=== PATIENT | female | born 1995 | race Caucasian/White ===

== ENCOUNTER 2018-09-07 13:49 | Inpatient (IN) | payer OTHER ==
[~2018-09-07] VITALS: Ht 157.5 cm; Wt 88.4 kg
[2018-09-07 14:06] VITALS: Ht 157.5 cm; Wt 88.4 kg
[2018-09-07] MEDS ORDERED: LACTATED RINGER'S 1,000 ML IV SCH ×2 (14:08→21:13)
[2018-09-07] MEDS ORDERED: METHYLERGONOVINE 0.2 MG INJ IM PRN ×2 (14:30→21:30)
[2018-09-07] MEDS ORDERED: GENTAMICIN 120 MG/NS (PMX) 100 ML IVPB ONE (14:30)
[2018-09-07] MEDS ORDERED: OXYTOCIN 30 UNITS/LR 500 ML IV SCH (14:30)
[2018-09-07] MEDS ORDERED: OXYTOCIN 30 UNITS/LR 500 ML IV PRN ×2 (14:30→21:30)
[2018-09-07] MEDS ORDERED: CARBOPROST 250 MCG INJ IM PRN ×2 (14:30→21:30)
[2018-09-07] MEDS ORDERED: MISOPROSTOL 200 MCG TAB PR PRN ×2 (14:30→21:30)
[2018-09-07] MEDS ORDERED: CLINDAMYCIN 900 MG/D5W (PMX) 50 ML IVPB SCH (14:30)
[2018-09-07 14:48] VITALS: BP 109/69; PULSE 60; RESP 20
[2018-09-07] MEDS ORDERED: CITRIC ACID/NA CITRATE 30 ML CUP PO STA (15:06)
--- NOTE | 2018-09-07 15:27 | PREAC ---
Date/Time of Note Date/Time of Note DATE: 09/07/18 TIME: 15:26 Anesthesia Eval and Record Evaluation Time Pre-Procedure Interview DATE: 09/07/18 TIME: 15:26 Age 22 Sex female NPO: 8 hrs Preoperative diagnosis repeat c section Planned procedure c section Past Medical History Past Medical History: Includes : Para: (1), Gestational age: (40) Surgery & Anesthesia Issues No known issue Meds Anticoagulation: No Beta Sharlene within 24 hr: No Reason Beta Sharlene not given: Pt. not on B-Sharlene Current Medications Lactated Ringer's 1,000 ml @ 125 mls/hr Q8H IV Last administered on 09/07/18at 14:47; Admin Dose 125 MLS/HR; Start 09/07/18 at 14:08 Clindamycin HCl/ Dextrose 50 ml @ 50 mls/hr ONCE IVPB ; Start 09/07/18 at 14:30 Oxytocin/Lactated Ringer's 500 ml @ 125 mls/hr POST IV ; Start 09/07/18 at 14:30 Oxytocin/Lactated Ringer's 500 ml @ 0 mls/hr ONCE PRN IV .VAGINAL BLEEDING; Start 09/07/18 at 14:30 Methylergonovine Maleate (Methergine) 0.2 mg ONCE PRN IM .VAGINAL BLEEDING; Start 09/07/18 at 14:30 Carboprost Tromethamine (Hemabate) 250 mcg ONCE PRN IM .VAGINAL BLEEDING; Start 09/07/18 at 14:30 Misoprostol (Cytotec) 1,000 mcg ONCE PRN OK .VAGINAL BLEEDING; Start 09/07/18 at 14:30 Meds reviewed: Yes Allergies Coded Allergies: penicillin G (Verified Allergy, Unknown, rash, 09/07/18) Allergies Reviewed: Yes Labs/Studies Labs Reviewed: Reviewed by anesthesiologist Result Diagram: 09/07/18 1428 Laboratory Tests 09/07/18 14:28 Blood Bank Test 09/07/18 14:28 Antibody Screen NEGATIVE Blood Type O POSITIVE Rh Immune Globulin Candidate NO test: Positive Studies: ECG (n/a), CXR (n/a) Pre-procedure Exam Last vitals Vital Signs Date Temp Pulse Resp B/P (MAP) Pulse Ox O2 O2 Flow FiO2 Time Delivery Rate 09/07/18 98.3 60 20 109/69 14:48 (82) Airway: Adequate mouth opening Mallampati: Mallampati I Teeth: Normal Lung: Normal Heart: Normal ASA Physical Status ASA physical status: 2 Emergency: None Planned Anesthetic Neuraxial: Spinal Planned Pain Management Sub-arachniod narcotics Pre-operative Attestations Prior to commencing anesthesia and surgery, the patient was re-evaluated, there was verification of: *The patient's identity *The results of appropriate recent lab work and preoperative vital signs *The above evaluation not changing prior to induction *Anesthetic plan, risk benefits, alternative and complications discussed with patient/family; questions answered; patient/family understands, accepts and wishes to proceed. LIAM GREEN MD September 07, 2018 15:27
[2018-09-07] MEDS ORDERED: KETOROLAC 30 MG INJ ONE (15:47)
[2018-09-07] MEDS ORDERED: METOCLOPRAMIDE 10 MG INJ ONE (15:47)
[2018-09-07] MEDS ORDERED: morphine SULFATE/PF (10 MG/10 ML) INJ ONE (15:47)
[2018-09-07] MEDS ORDERED: ONDANSETRON 4 MG INJ ONE (15:47)
--- NOTE | 2018-09-07 17:07 | HP ---
Date/Time of Note Date/Time of Note DATE: 09/07/18 TIME: 17:05 OB - History Hx of Present Free Text/Dictation 22-year-old female 4 para 1 AB 2 at 40 weeks gestation admitted for repeat Last Menstrual Period: Dec 07, 2017 Estimated Due Date: September 07, 2018 : 4 Para: 1 Spontaneous : 2 Care: Good Care Ultrasounds: Normal mid trimester US Medical Complications: None Past Family/Social History * Past Medical, Surgical, Family and Obstetric Histories reviewed from chart. Blood Type: O+ Rubella: immune RPR/VDRL: Negative GBS Status: Negative HBsAG: Negative OB Admission Exam Vital Signs Vital Signs Vital Signs Date Temp Pulse Resp B/P (MAP) Pulse Ox O2 O2 Flow FiO2 Time Delivery Rate 09/07/18 98.3 60 20 109/69 14:48 (82) Physical Exam HEENT: WNL Heart: Rhythm Normal Lungs: Clear, Equal Abdomen: WNL Extremities: Normal Reflexes: Normal Cervical Dilatation: None Effacement: 0% Station: -3 Membranes: Intact Heart Rate: 140's Accelerations: Accelerations Present Decelerations: No Decelerations Varibility: Marked Contractions on Admission: None Last 72 hours Lab Results CBC & BMP 09/07/18 14:28 OB Assessment/Plan Reason for admission: section Other Assessment: Term gestation Previous x1 Other plan: Repeat section CUAUHTEMOC VERMA MD September 07, 2018 17:07
[2018-09-07] MEDS ORDERED: KETOROLAC 30 MG INJ IV STA (17:11)
[2018-09-07] MEDS ORDERED: ACETAMINOPHEN 500 MG TAB PO STA (17:11)
--- NOTE | 2018-09-07 17:11 | OPR ---
Operative Report Planned Procedure Procedure date September 07, 2018 Procedure(s) Repeat delivery Performed by see signature line Solution Lead: ZACH LOVE MD Anesthesiologist: LIAM GREEN MD Pre-procedure diagnosis Term gestation Previous [id number] Anesthesia Type: Nicnn0q spinal Post-Procedure Post-procedure diagnosis Status post repeat Findings Live Baby in CARL position Slightly meconium stained amniotic fluid Normal-appearing right and left fallopian tubes and ovaries Estimated Blood Loss: 500 - 600 mls Specimen(s) none Grafts/Implant(s) none Complication(s) none Pt Condition post procedure: stable Disposition: PACU Procedure Description Under satisfactory anaesthesia a Pfannenstiel incision was made two fingerbreadth above and parallel to the symphysis of pubis around the previous scar and previous scar was removed Incision was extended laterally to the border of the Recti muscles on either sides. Incision was carried down with sharp and blunt dissection until fascia was reached. Anterior Recti muscle fascia was incised in mid portion and incision extended laterally to the border of skin incision. Fascia was mobilized from muscle superiorly and Recti muscles were from midline using sharp and blunt dissection. Peritoneum was visualized; Avoiding bowel and bladder it was incised . Incision was extended superiorly and inferiorly. Bladder blade was placed. Posterior peritoneum covering the lower segment of the uterus and lower segment of the uterus were incised.Low transverse uterine incision was made on lower segment of the uterus. Incision extended laterally to the border of Round Lig. on either sides and baby was delivered from OT. position . Amniotic fluid appeared clear. Cord blood was obtained and cord had 3 vessels . Placenta was delivered spontaneously and appeared intact and complete. Intrauterine cavity was rubbed with a laparotomy sponge. Uterine incision was closed in 2 layers using running stitches of No1 Monocryl. Hemostasis appeared secure. Ovaries and Fallopian tubes were within normal limits. Announcing needle, lap sponge and instrument count to be correct abdomen was closed in layers as follows: Peritoneum and Recti muscles with running stitches of 2-0 Monocryl . Fascia with running stitch of No 1 PDS. Subcutaneous tissue with running stitches of 2- 0 Monocryl and skin was closed using fabrizio. Patient tolerated the procedure well and was transferred to [facility] in good condition. CUAUHTEMOC VERMA MD September 07, 2018 17:11
[2018-09-07] MEDS ORDERED: DIPHENHYDRAMINE 50 MG INJ IV PRN ×2 (17:30)
[2018-09-07] MEDS ORDERED: KETOROLAC 30 MG INJ IV PRN (17:30)
[2018-09-07] MEDS ORDERED: morphine 2 MG INJ IV PRN ×6 (17:30)
[2018-09-07] MEDS ORDERED: ONDANSETRON 4 MG INJ IV PRN ×2 (17:30)
[2018-09-07] MEDS ORDERED: NALOXONE (0.4 MG/ML) INJ IV PRN (17:30)
[2018-09-07] MEDS ORDERED: MEPERIDINE 25 MG INJ IV PRN (17:30)
[2018-09-07] MEDS ORDERED: NA PHOSPHATE/BIPHOS 133 ML ENEMA PR PRN (21:30)
[2018-09-07] MEDS ORDERED: LANOLIN HPA 1 PKT TOP PRN (21:30)
[2018-09-07] MEDS ORDERED: OXYCODONE/ACETAMINOPHEN (5/325) TAB PO PRN (21:30)
[2018-09-07] MEDS ORDERED: HYDROCODONE/APAP (5/325) TAB PO PRN (21:30)
[2018-09-07] MEDS: CLINDAMYCIN 900 MG/D5W (PMX) 50 ML IVPB SCH (21:30)
[2018-09-07] MEDS: GENTAMICIN 80 MG/NS (PMX) 50 ML IVPB SCH (22:41)
[2018-09-07 23:58] VITALS: BP 100/63; PULSE 65; RESP 18
[2018-09-08 03:52] VITALS: BP 101/59; PULSE 65; RESP 20
[2018-09-08] MEDS: CLINDAMYCIN 900 MG/D5W (PMX) 50 ML IVPB SCH ×2 (05:22→13:07)
[2018-09-08] MEDS: KETOROLAC 30 MG INJ IV PRN ×2 (05:44→13:19)
[2018-09-08] MEDS: GENTAMICIN 80 MG/NS (PMX) 50 ML IVPB SCH ×2 (06:32→13:23)
[2018-09-08 08:59] VITALS: BP 99/58; PULSE 62; RESP 18
[2018-09-08] MEDS: SENNA/DOCUSATE NA (8.6MG/50MG) TAB PO SCH ×2 (09:12→21:30)
[2018-09-08] MEDS ORDERED: BISACODYL 10 MG SUPP PR ONE (09:30)
[2018-09-08 12:00] VITALS: BP 110/63; PULSE 6; RESP 18
--- NOTE | 2018-09-08 12:05 | PN ---
Date/Time of Note Date/Time of Note DATE: 09/08/18 TIME: 12:04 Assessment/Plan VTE Prophylaxis VTE Prophylaxis Intervention: ambulation Lines/Catheters IV Catheter Type (from Nrsg): Peripheral IV Assessment/Plan Assessment/Plan Status post postop day #1 Advance diet and ambulate Continue to monitor vital signs Subjective 24 Hr Interval Summary No bowel movement but passing flatus Constitutional: no complaints, improved, ambulates, BM, flatus, urine output Pain Control: well controlled Exam/Review of Systems Vital Signs Vitals Vital Signs Date Temp Pulse Resp B/P (MAP) Pulse Ox O2 O2 Flow FiO2 Time Delivery Rate 09/08/18 98.1 62 18 99/58 (72) 99 Room Air 08:59 Intake and Output 09/07/18 09/07/18 09/08/18 1515:00 23:00 07:00 IntakeIntake Total 1000 ml 2450 ml 50 ml OutputOutput Total 200 ml 1083 ml 1000 ml BalanceBalance 800 ml 1367 ml -950 ml Exam Free Text/Dictation Abdomen is soft and not distended with present bowel sounds Slightly tender around incision Incision is covered Constitutional: alert, oriented, well developed Psych: no complaints, nl mood/affect Head: normocephalic, atraumatic Eyes: nl conjunctiva, EOMI, nl lids, nl sclera ENMT: nl external ears & nose, nl lips & teeth, nl nasal mucosa & septum, mucosa pink and moist Neck: supple, non-tender Respiratory: clear to auscultation, normal air movement Cardiovascular: regular rate and rhythm, nl pulses Gastrointestinal: soft, nl liver, spleen, non-tender Musculoskeletal: nl extremities to inspection, nl gait and stance Extremities: normal pulses Neurological: DOOR CORE ASSEMBLER II-XII intact, nl mental status, nl speech, nl strength Skin: nl turgor, rash or lesions Lymph: nl lymph nodes Results Result Diagram: 09/08/18 0717 CUAUHTEMOC VERMA MD September 08, 2018 12:05
[2018-09-08 15:48] VITALS: BP 134/79; PULSE 75; RESP 20
[2018-09-08 19:40] VITALS: BP 120/82; PULSE 90; RESP 19
[2018-09-08] MEDS: IBUPROFEN 800 MG TAB PO SCH (21:30)
[2018-09-09 04:00] VITALS: BP 120/80; PULSE 63; RESP 19
[2018-09-09] MEDS: CLINDAMYCIN 300 MG CAP PO SCH ×3 (06:24→17:34)
[2018-09-09] MEDS: IBUPROFEN 800 MG TAB PO SCH ×3 (06:24→21:44)
[2018-09-09 08:15] VITALS: BP 114/76; PULSE 66; RESP 18
[2018-09-09] MEDS: SENNA/DOCUSATE NA (8.6MG/50MG) TAB PO SCH ×2 (09:17→21:44)
[2018-09-09 15:35] VITALS: BP 120/79; PULSE 70; RESP 16
[2018-09-09 20:40] VITALS: BP 118/72; PULSE 74; RESP 17
[2018-09-10] MEDS: CLINDAMYCIN 300 MG CAP PO SCH ×4 (00:02→18:02)
[2018-09-10 04:00] VITALS: BP 111/68; PULSE 78; RESP 18
--- NOTE | 2018-09-10 06:40 | PAC ---
Date/Time of Note Date/Time of Note DATE: 09/09/18 TIME: 06:39 Post-Anesthesia Notes Post-Anesthesia Note Last documented vital signs Vital Signs Date Temp Pulse Resp B/P (MAP) Pulse Ox O2 O2 Flow FiO2 Time Delivery Rate 09/10/18 97.9 78 18 111/68 99 Room Air 04:00 (82) 09/08/18 99 08:59 Activity: WNL Respiratory function: WNL Cardiovascular function: WNL Mental status: Baseline Pain reasonably controlled: Yes Hydration appropriate: Yes Nausea/Vomiting absent: No LIAM GREEN MD September 10, 2018 06:40
[2018-09-10] MEDS: IBUPROFEN 800 MG TAB PO SCH ×2 (06:57→13:22)
[2018-09-10 08:00] VITALS: BP 119/74; PULSE 66; RESP 18
--- NOTE | 2018-09-10 08:43 | OPPN ---
Date/Time of Note Date/Time of Note DATE: 09/08/18 TIME: 08:41 Anesthesia Follow up Anesthesia Follow up Last documented vital signs Vital Signs Date Temp Pulse Resp B/P (MAP) Pulse Ox O2 O2 Flow FiO2 Time Delivery Rate 09/10/18 97.9 78 18 111/68 Room Air 04:00 (82) 09/08/18 99 08:59 Respiratory function: WNL Cardiovascular function: WNL Comments A 22 year s/pspinal duramorph for post op pain, POD#1 no issue, no headache, pain, N/V, itching, neural deficit. care per surgery LIAM GREEN MD September 10, 2018 08:43
[2018-09-10] MEDS ORDERED: DIPHTH/TET/ACEL PERTUSS (ADULT) 0.5 ML VIAL IM* ONE (09:00)
[2018-09-10] MEDS: SENNA/DOCUSATE NA (8.6MG/50MG) TAB PO SCH (09:36)
[2018-09-10 16:00] VITALS: BP 136/83; PULSE 78; RESP 20
--- NOTE | 2018-09-10 16:23 | PN ---
Date/Time of Note Date/Time of Note DATE: 09/09/18 Late entry Assessment/Plan VTE Prophylaxis VTE Prophylaxis Intervention: ambulation Lines/Catheters IV Catheter Type (from Nrsg): Saline Lock Assessment/Plan Assessment/Plan Status post postop day #2 We will continue to monitor vital signs and possibly discharge Subjective 24 Hr Interval Summary Had bowel movements Constitutional: no complaints, improved, ambulates, BM, flatus, urine output Pain Control: well controlled Exam/Review of Systems Vital Signs Vitals Vital Signs Date Temp Pulse Resp B/P (MAP) Pulse Ox O2 O2 Flow FiO2 Time Delivery Rate 09/10/18 98.3 66 18 119/74 Room Air 08:00 (89) 09/08/18 99 08:59 Exam Free Text/Dictation Abdomen is soft and not distended bowel sounds are present Incision is healing without induration and or erythema Constitutional: alert, oriented, well developed Psych: no complaints, nl mood/affect Head: normocephalic, atraumatic Eyes: nl conjunctiva, EOMI, nl lids, nl sclera ENMT: nl external ears & nose, nl lips & teeth, nl nasal mucosa & septum, mucosa pink and moist Neck: supple, non-tender Respiratory: clear to auscultation, normal air movement Cardiovascular: regular rate and rhythm, nl pulses Gastrointestinal: soft, nl liver, spleen, non-tender Musculoskeletal: nl extremities to inspection, nl gait and stance Extremities: normal pulses Neurological: PATIENT CARE SPECIALIST II-XII intact, nl mental status, nl speech, nl strength Skin: nl turgor, rash or lesions Lymph: nl lymph nodes Results Result Diagram: 09/09/18 0756 CUAUHTEMOC VERMA MD September 10, 2018 16:23
--- NOTE | 2018-09-10 16:24 | DS ---
Date/Time of Note Date/Time of Note DATE: 09/10/18 TIME: 16:23 Obstetrical Discharge Record Final Diagnosis Final Diagnosis: Term delivered Other Final Diagnosis Status post Section Section: Repeat Condition on Discharge Physical Assessment Last Vitals: See nurse's notes Voiding: Yes Bowel Movement: Yes Breast: Soft, non-tender, Filling Fundus: Firm Abdomen and Incision: Abdomen is soft with present bowel sounds Incision is healing without induration or erythema Calf Tenderness: No Patient Condition: Good CUAUHTEMOC VERMA MD September 10, 2018 16:24
[2018-09-10] MEDS ORDERED: ACETAMINOPHEN 325 MG TAB PO PRN (16:30)
--- NOTE | 2018-09-10 16:32 | DS ---
Date/Time of Note Date/Time of Note DATE: 09/10/18 TIME: 16:25 Discharge Summary Admission/Discharge Info Admit Date/Time September 07, 2018 at 13:49 Discharge Date/Time September 10, 2018 Discharge Diagnosis Status post Patient Condition: Good Procedures Repeat delivery Hx of Present Illness 22-year-old female underwent repeat Hospital Course Uncomplicated Follow-up Plan 2 days for staple removal Primary Care Provider [facility] Time spent on discharge: > 30 minutes CUAUHTEMOC VERMA MD September 10, 2018 16:32
--- NOTE | 2018-09-10 16:33 | PD.PPDC ---
COLD ROLLING COORDINATOR Discharge Instruction Provider Information Physician Information 22-year-old female had repeat Diagnosis [id number] Final Diagnosis: Iehqq0z Status post Condition [id number] Patient Condition: Vdshn4w Good Diet [id number] Diet: Fhore0l Resume Regular Diet Activity/Restrictions [id number] Activity: Vtpmm6f May Shower [id number] Restrictions: Iuhks7l No Exercising No Lifting Nothing in the Vagina [id number] Return to Work or School: Icumo9w Nov 12, 2018 Wound/Drain Care Instructions [id number] Wound/Drain Care Instructions: Nnhus3u Keep clean and dry Follow-up Follow-up with Physician: 2, 3, Day/Days (In clinic for follow-up) Return to clinic for Egqjw4Yg HOGSHEAD FILLER Instructions: Kugte3i Fever greater than 101 Chills [id number] OB Instructions: Zaffa5e Breast Tenderness Depression Comment: Week rest and no hard activity for 2 months [id number] Surgical Instructions: Wdwwg9a Incisional Drainage Incisional Redness CUAUHTEMOC VERMA MD September 10, 2018 16:33
[2018-09-10] MEDS ORDERED: IBUP800T48 PO (16:34)
[2018-09-10] MEDS ORDERED: ACET325T33 PO (16:39)
--- NOTE | 2018-09-11 20:16 | DELSUM ---
Delivery Summary A-C Datetime Report Generated by [facility]: 09/11/2018 20:16 DELIVERY PERSONNEL Heavy Equipment Operator Apprentice: [place], May MATERNAL INFORMATION Delivery Anesthesia: Spinal Medications in Delivery: SEE ANESTHESIA RECORD Placenta Cultured: No Maternal Complications: None RN Comments: rc/s, allergic to pcn, LABOR SUMMARY EDC: 09/07/2018 00:00 (Annotations: Data stored by [facility] on behalf of user) No. Babies in Womb: 1 Attempted: No Labor Anesthesia: None LABOR INFORMATION Reason for Induction: Not Applicable Oxytocin: N/A Group B Beta Strep: Negative Antibiotics # of Doses: 2 Antibiotics Time of Last Dose: 09/07/2018 15:54 Steroids Given: None Reason Steroids Not Administered: Not Applicable MEMBRANES Membranes Rupture Method: Artificial Rupture of Membranes: 09/07/2018 16:20 Length of Rupture (hr): 0.00 Amniotic Fluid Color: Light Meconium Amniotic Fluid Amount: Small Amniotic Fluid Odor: None STAGES OF LABOR Stage 3 hr: 0 Stage 3 min: 1 CSECTION DELIVERY Primary Indication: Other Other Primary Indication: PREVIOUS C/SECTION Secondary Indication: N/A CSection Urgency: Elective CSection Incidence: Repeat Labor: No Labor Elective: Elective CSection Incision: Lower Uterine Transverse BABY A INFORMATION Delivery Date/Time: 09/07/2018 16:20 Method of Delivery: Born in Route : No : N/A Forceps: N/A Vacuum Extraction: N/A Shoulder Dystocia : No SHOULDER DYSTOCIA BABY A Delivery Date/Time: 09/07/2018 16:20 PRESENTATION/POSITION BABY A Presentation: Cephalic Cephalic Presentation: Vertex Vertex Position: Left Occipital Anterior Breech Presentation: N/A PLACENTA INFORMATION BABY A Placenta Delivery Time : 09/07/2018 16:21 Placenta Method of Delivery: Manual Removal Placenta Status: Delivered SCORES BABY A Heart Rate 1 min: >100 bpm Resp Effort 1 min: Good Cry Reflex Irritability 1 min: Cough/Sneeze/Pulls Away Muscle Tone 1 min: Active Motion Color 1 min: Blue/Pale Resuscitation Effort 1 min: Tactile Stimulation; Oxygen; PPV/NCPAP SCORE 1 MIN: 8 Heart Rate 5 min: >100 bpm Resp Effort 5 min: Good Cry Reflex Irritability 5 min: Cough/Sneeze/Pulls Away Muscle Tone 5 min: Active Motion Color 5 min: Body Myrtle, Extremit Blue Resuscitation Effort 5 min: Tactile Stimulation; Oxygen SCORE 5 MIN: 9 INFANT INFORMATION BABY A Gestational Age at Delivery: 40.0 Gestational Status: Full Term- 39- 40.6 Weeks Infant Outcome : Liveborn Infant Condition : Stable Sex: Female IDENTIFICATION/MEDS BABY A ID Band Number: [id number] ID Band Location: Right Leg; Left Arm Sensor Applied: Yes Sensor Number: [id number] Sensor Location : Cord Clamp Vitamin K Given : Not Given Erythromycin Given: Not Given WEIGHT/LENGTH BABY A Birthweight (gm): 3210 Weight (lb): 7 Weight (oz): 1 Infant Length (in): 18.50 Length (cm): 46.99 CORD INFORMATION BABY A No. Cord Vessels: 3 Nuchal Cord : N/A Cord Blood Taken: Yes Infant Suction: Mouth; Nose ASSESSMENT BABY A Complications: None Physical Findings at Delivery: Within Normal Limits Infant Respirations: Appears Normal Information Security Director/ALS Called : No Care By: GABRIEL/CATHY Transferred To: Remains with Mother
== END 2018-09-10 19:00 | disposition home or self-care (01) | DRG 788 ==
LOC: L-D 13:49 → PP1 20:49
PROVIDERS: ADMIT Obstetrics & Gynecology; ATTEND Obstetrics & Gynecology
PROC: 3E033VJ Introduction of Other Hormone into Peripheral Vein, Percutaneous Approach (ICD-10-PCS; 2018-09-07)
PROC: 10D00Z1 Extraction of Products of Conception, Low, Open Approach (ICD-10-PCS; principal; 2018-09-07 15:30)
DX: O65.5 Obstructed labor due to abnormality of maternal pelvic organs (principal); O34.211 Maternal care for low transverse scar from previous cesarean delivery; O48.0 Post-term pregnancy; Z3A.40 40 weeks gestation of pregnancy; Z37.0 Single live birth
CPT/HCPCS: 85025; 85610; 85730; 86592; 86850; 86900; 86901; 87340; 99464; J1580; J1885; J2274; J2405; J2590; J2765; J7120